=== PATIENT | female | born 1975 | race American Indian/Alaskan Native ===

== ENCOUNTER 2017-05-27 18:40 | Emergency (ER) | payer OTHER ==
[2017-05-27 20:04] LABS: Basophils % (Auto) 0.4 % (0.0-1.8); Eosinophils % (Auto) 1.8 % (0.0-4.3); Hematocrit 36.3 % (30.3-42.9); Hemoglobin 11.7 gm/dl (10.1-14.3); Mean Corpuscular HGB Conc 32 % (30-34); Mean Corpuscular Hemoglobin 29 pg (28-32); Mean Corpuscular Volume 90 fl (79-97); Platelet Count 298 K/mm3 (140-440); Red Blood Count 4.03 M/mm3 (3.65-5.03); Red Cell Distribution Width 13.3 % (13.2-15.2); White Blood Count 9.3 K/mm3 (4.5-11.0)
[2017-05-27 20:27] LABS: Alanine Aminotransferase 15 units/L (7-56); Albumin/Globulin Ratio 1.2 %; Alkaline Phosphatase 75 units/L (35-129); Anion Gap 16 mmol/L; BUN/Creatinine Ratio 14.28; Blood Urea Nitrogen 10 mg/dL (7-17); Calcium 8.6 mg/dL (8.4-10.2); Carbon Dioxide 25 mmol/L (22-30); Chloride 106.6 mmol/L (98-107); Glucose 82 mg/dL (65-100); Lipase 15 units/L (13-60); Potassium 3.8 mmol/L (3.6-5.0); Sodium 144 mmol/L (137-145); Total Protein 7.3 g/dL (6.3-8.2)
[2017-05-28 00:16] LABS: Bacteria,Urine 2+ /HPF (Negative); Bilirubin,Urine NEG (Negative); Blood,Urine NEG (Negative); Ketones,Urine NEG (Negative); Leukocyte Esterase,Urine SM (Negative); Mucus,Urine FEW /HPF; Nitrite,Urine POS (Negative); Protein,Urine <15 mg/dL mg/dL (Negative); Urobilinogen,Urine < 2.0 mg/dL (<2.0)
--- NOTE | 2017-05-28 02:24 | Emergency Department Report ---
ED Abdominal Pain HPI - General Chief Complaint: Abdominal Pain Stated Complaint: RIGHT SIDE PAIN Time Seen by Provider: 05/28/17 02:14 Source: patient Mode of arrival: Ambulatory Limitations: No Limitations - History of Present Illness Initial Comments: Patient stated that she has right flank pain for more than 3 weeks. Also complaining of frequent urination and burning sensation when she gets the bathroom. No fever no chills no nausea no vomiting. MD Complaint: abdominal pain, flank pain Severity scale (0 -10): 7 - Related Data Previous Rx's Medication Instructions Recorded Last Taken Type Ciprofloxacin HCl [Ciprofloxacin 500 mg PO Q12H #14 tab 05/28/17 Unknown Rx TAB] Ketorolac [Toradol] 10 mg PO Q6H PRN #20 tablet 05/28/17 Unknown Rx Allergies Allergy/AdvReac Type Severity Reaction Status Date / Time No Known Allergies Allergy Verified 05/27/17 19:32 ED Review of Systems ROS: Stated complaint: RIGHT SIDE PAIN Other details as noted in HPI Comment: All other systems reviewed and negative Constitutional: denies: chills, fever Respiratory: denies: cough, shortness of breath Cardiovascular: denies: chest pain, palpitations Gastrointestinal: denies: abdominal pain, nausea, vomiting Genitourinary: urgency, dysuria, frequency. denies: hematuria, discharge, abnormal menses, dyspareunia Musculoskeletal: back pain Neurological: denies: headache ED Past Medical Hx - Past Medical History Previous Medical History?: No - Surgical History Past Surgical History?: No - Social History Smoking Status: Current Every Day Smoker Substance Use Type: None - Medications Home Medications: Home Medications Medication Instructions Recorded Confirmed Last Taken Type Ciprofloxacin HCl [Ciprofloxacin 500 mg PO Q12H #14 tab 05/28/17 Unknown Rx TAB] Ketorolac [Toradol] 10 mg PO Q6H PRN #20 tablet 05/28/17 Unknown Rx ED Physical Exam - General Limitations: No Limitations General appearance: alert, in no apparent distress - Head Head exam: Present: normocephalic - Eye Eye exam: Present: normal appearance - ENT ENT exam: Present: normal exam - Neck Neck exam: Present: normal inspection - Respiratory Respiratory exam: Present: normal lung sounds bilaterally - Cardiovascular Cardiovascular Exam: Present: regular rate - GI/Abdominal GI/Abdominal exam: Present: soft. Absent: distended, tenderness, guarding, rebound, rigid, normal bowel sounds - Back Exam Back exam: Present: normal inspection, CVA tenderness (R). Absent: tenderness, CVA tenderness (L), muscle spasm, paraspinal tenderness - Neurological Exam Neurological exam: Present: alert, oriented X3, CN II-XII intact - Skin Skin exam: Present: warm, normal color ED Course Vital Signs 05/27/17 05/27/17 19:33 22:47 Temperature 99.0 F 97.5 F L Pulse Rate 42 L Respiratory 20 18 Rate Blood Pressure 155/72 152/78 O2 Sat by Pulse 100 100 Oximetry ED Medical Decision Making - Lab Data Result diagrams: 05/27/17 19:54 05/27/17 19:54 Critical care attestation.: If time is entered above; I have spent that time in minutes in the direct care of this critically ill patient, excluding procedure time. ED Disposition Clinical Impression: UTI (urinary tract infection) Disposition: DC-01 TO HOME OR SELFCARE Is pt being admited?: No Condition: Stable Instructions: Abdominal Pain (ED), Urinary Tract Infection in Women (ED) Referrals: PRIMARY CARE, [Primary Care Provider] - 3-5 Days
[2017-05-28 02:38] VITALS: BP 113/74
== END 2017-05-28 03:16 | disposition home or self-care (01) ==
LOC: ED 18:40
DX: N39.0 Urinary tract infection, site not specified (principal)
CPT/HCPCS: 36415; 80053; 81001; 83690; 84703; 85025; 93005; 93010; 99283

== ENCOUNTER 2021-06-10 15:11 | Emergency (ER) | payer SELFPAY | END 2021-06-10 16:50 | LOC: ED 15:11 | DX: N18.9 Chronic kidney disease, unspecified (principal); Z53.21 Procedure and treatment not carried out due to patient leaving prior to being seen by health care provider ==

== ENCOUNTER 2022-03-02 14:38 | Emergency (ER) | payer SELFPAY ==
[2022-03-02 16:35] LABS: Bilirubin,Urine NEG (Negative); Blood,Urine NEG (Negative); Color,Urine Yellow (Yellow); Mucus,Urine FEW /HPF; Protein,Urine <15 mg/dL mg/dL (Negative); Urobilinogen,Urine < 2.0 mg/dL (<2.0)
[2022-03-02] MEDS ORDERED: KETOROLAC 10 MG TAB PO ONE (18:03)
--- NOTE | 2022-03-02 20:13 | Ultrasound Report ---
US abdomen limited INDICATION / CLINICAL INFORMATION: ruq pain. COMPARISON: No relevant prior imaging study available. FINDINGS: Examination is limited due to body habitus. PANCREAS: No significant abnormality. ABDOMINAL AORTA: No significant abnormality. IVC: No significant abnormality. LIVER: Liver is enlarged, measuring 18.3 cm. No other significant abnormality. PORTAL VEIN: Normal hepatopedal blood flow in the main portal vein. GALLBLADDER: No significant abnormality. BILE DUCTS: Common bile duct measures 2 mm. No significant abnormality. RIGHT KIDNEY: No significant abnormality visualized. FREE FLUID: None. ADDITIONAL FINDINGS: None. IMPRESSION: 1. No acute abnormality of the right upper quadrant. 2. Mild hepatomegaly, which is nonspecific. Signer Name: Logan Adam MD Signed: 03/02/2022 8:08 PM Workstation Name: [id number]
--- NOTE | 2022-03-02 20:53 | Emergency Department Report ---
ED Abdominal Pain HPI - General Chief Complaint: Abdominal Pain Stated Complaint: LEG AND STOMACH PAIN Time Seen by Provider: 03/02/22 17:52 Source: patient Mode of arrival: Ambulatory Limitations: No Limitations - History of Present Illness Initial Comments: 46-year-old black female with no past medical history presents to the emergency department for evaluation of few week history of intermittent right upper quadrant pain. She states that pain feels like sharp pinching pain that comes out of nowhere and is 9 of 10 at its worse. She states that she also has pain to her right leg and sometimes her leg "goes out" when she is walking around. She denies fever, dysuria, nausea, vomiting, and vaginal discharge. She states that she has not taken any medication for her symptoms. She also denies chest pain, shortness of breath, and hemoptysis. MD Complaint: abdominal pain -: Gradual, week(s) (2-3) Location: RUQ Radiation: none Migration to: no migration Severity: moderate Severity scale (0 -10): 7 Quality: stabbing Consistency: intermittent Associated Symptoms: denies: nausea, diarrhea, fever, chills, dysuria, hematemesis, hematochezia, melena, hematuria, anorexia, syncope - Related Data LMP (females 10-50): this week Previous Rx's Medication Instructions Recorded Last Taken Type Ciprofloxacin HCl [Ciprofloxacin 500 mg PO Q12H #14 tab 05/28/17 Unknown Rx TAB] Ketorolac [Toradol] 10 mg PO Q6H PRN #20 tablet 05/28/17 Unknown Rx Naproxen [Naprosyn] 500 mg PO BID #14 tab 03/02/22 Unknown Rx Allergies Allergy/AdvReac Type Severity Reaction Status Date / Time No Known Allergies Allergy Verified 03/02/22 17:41 ED Review of Systems ROS: Stated complaint: LEG AND STOMACH PAIN Other details as noted in HPI Comment: All other systems reviewed and negative Constitutional: denies: chills, fever, malaise, weakness ENT: denies: congestion Respiratory: denies: orthopnea, shortness of breath, SOB with exertion, SOB at rest, stridor, wheezing Cardiovascular: denies: chest pain, palpitations, dyspnea on exertion, orthopnea, edema, syncope, paroxysmal nocturnal dyspnea Gastrointestinal: abdominal pain. denies: nausea, vomiting, diarrhea, hematemesis, melena, hematochezia Genitourinary: denies: urgency, dysuria, frequency, hematuria, discharge Musculoskeletal: back pain Skin: denies: rash, lesions, change in color, change in hair/nails, pruritus Neurological: denies: headache, weakness, numbness, paresthesias ED Past Medical Hx - Past Medical History Previous Medical History?: No - Social History Smoking Status: Never Smoker Substance Use Type: None - Medications Home Medications: Home Medications Medication Instructions Recorded Confirmed Last Taken Type Ciprofloxacin HCl [Ciprofloxacin 500 mg PO Q12H #14 tab 05/28/17 03/02/22 Unknown Rx TAB] Ketorolac [Toradol] 10 mg PO Q6H PRN #20 tablet 05/28/17 03/02/22 Unknown Rx Naproxen [Naprosyn] 500 mg PO BID #14 tab 03/02/22 Unknown Rx ED Physical Exam - General Limitations: No Limitations General appearance: alert, in no apparent distress - Head Head exam: Present: atraumatic, normocephalic - Eye Eye exam: Present: normal appearance. Absent: conjunctival injection - Neck Neck exam: Present: normal inspection, full ROM. Absent: tenderness, lymphadenopathy - Respiratory Respiratory exam: Present: normal lung sounds bilaterally. Absent: respiratory distress, wheezes, rales, rhonchi, stridor, chest wall tenderness - Cardiovascular Cardiovascular Exam: Present: bradycardia, normal heart sounds - GI/Abdominal GI/Abdominal exam: Present: soft, normal bowel sounds. Absent: distended, ten derness, guarding, rebound, rigid - Extremities Exam Extremities exam: Present: normal inspection, normal capillary refill. Absent: tenderness, pedal edema, joint swelling, calf tenderness - Back Exam Back exam: Present: normal inspection. Absent: CVA tenderness (R), CVA tenderness (L), vertebral tenderness - Neurological Exam Neurological exam: Present: alert, oriented X3, normal gait - Psychiatric Psychiatric exam: Present: normal affect, normal mood - Skin Skin exam: Present: warm, dry, intact, normal color ED Course Vital Signs 03/02/22 03/02/22 15:31 17:37 Temperature 98.1 F 98.6 F Pulse Rate 47 L 76 Respiratory 18 18 Rate Blood Pressure 161/61 130/85 [Right] O2 Sat by Pulse 97 100 Oximetry - Reevaluation(s) Reevaluation #1: 03/02/22 20:49 Pain resolved after medication. ED Medical Decision Making - Radiology Data Radiology results: report reviewed, image reviewed Right upper quadrant ultrasound: FINDINGS: Examination is limited due to body habitus. PANCREAS: No significant abnormality. ABDOMINAL AORTA: No significant abnormality. IVC: No significant abnormality. LIVER: Liver is enlarged, measuring 18.3 cm. No other significant abnormality. PORTAL VEIN: Normal hepatopedal blood flow in the main portal vein. GALLBLADDER: No significant abnormality. BILE DUCTS: Common bile duct measures 2 mm. No significant abnormality. RIGHT KIDNEY: No significant abnormality visualized. FREE FLUID: None. ADDITIONAL FINDINGS: None. IMPRESSION: 1. No acute abnormality of the right upper quadrant. 2. Mild hepatomegaly, which is nonspecific. - Medical Decision Making 46-year-old black female with no past medical history presents to the emergency department for evaluation of few week history of intermittent right upper quadrant pain. She states that pain feels like sharp pinching pain that comes out of nowhere and is 9 of 10 at its worse. She states that she also has pain to her right leg and sometimes her leg "goes out" when she is walking around. She denies fever, dysuria, nausea, vomiting, and vaginal discharge. She states that she has not taken any medication for her symptoms. She also denies chest pain, shortness of breath, and hemoptysis. Urine negative for UTI. Ultrasound without any acute abnormalities noted, but noted to have mild hepatomegaly. Pain resolved after Toradol. Patient will be discharged home with prescription for naproxen and advised to follow-up with primary care provider or GI for further evaluation and management. She is advised to return to the emergency department for any concerning symptoms. She verbalizes understanding of and agreement with plan of care. Critical care attestation.: If time is entered above; I have spent that time in minutes in the direct care of this critically ill patient, excluding procedure time. ED Disposition Clinical Impression: Hepatomegaly Abdominal pain Qualifiers: Abdominal location: right upper quadrant Qualified Code(s): R10.11 - Right upper quadrant pain Disposition: HOME / SELF CARE / HOMELESS Is pt being admited?: No Does the pt Need Aspirin: No Condition: Stable Instructions: Hepatomegaly, [id number], Abdominal Pain, Adult, [id number], Abdominal Pain (ED) Additional Instructions: Follow-up with primary care provider or GI doctor for further evaluation and management. Return to the emergency department as needed. Prescriptions: Naproxen [Naprosyn] 500 mg PO BID #14 tab Referrals: HOLLY RUIZ MD [Primary Care Provider] - 3-5 Days Forms: Work/School Release Form(ED) Time of Disposition: 20:51
[2022-03-02 21:40] VITALS: BP 119/67
== END 2022-03-02 21:22 | disposition home or self-care (01) ==
LOC: ED 14:38
DX: R16.0 Hepatomegaly, not elsewhere classified (principal); R10.11 Right upper quadrant pain
CPT/HCPCS: 76705; 81001; 99284

== ENCOUNTER 2022-06-16 14:48 | Emergency (ER) | payer SELFPAY ==
[2022-06-16 17:06] VITALS: BP 163/56
[2022-06-16 18:08] LABS: Bacteria,Urine 1+ /HPF (Negative); Mucus,Urine FEW /HPF
[2022-06-16 18:28] LABS: Color,Urine Straw (Yellow)
[2022-06-16 18:52] LABS: Blood Urea Nitrogen 9 mg/dL (7-17); Calcium 8.8 mg/dL (8.4-10.2); Hemolysis Index 2
[2022-06-16 18:54] LABS: BUN/Creatinine Ratio 13
[2022-06-16 19:13] LABS: Hematocrit 36.8 % (30.3-42.9); Hemoglobin 11.7 gm/dl (10.1-14.3); Lymphocytes # (Auto) 2.4 K/mm3 (1.2-5.4); Lymphocytes % (Auto) 35.2 % (13.4-35.0); Mean Corpuscular HGB Conc 32 % (30-34); Mean Corpuscular Volume 90 fl (79-97); Monocytes % (Auto) 5.8 % (0.0-7.3); Platelet Count 285 K/mm3 (140-440); Red Blood Count 4.08 M/mm3 (3.65-5.03)
[2022-06-16 19:19] LABS: Basophils % (Auto) 0.6 % (0.0-1.8); Monocytes # (Auto) 5.8 K/mm3 (0.0-0.8); Red Cell Distribution Width 13.6 % (13.2-15.2)
== END 2022-06-16 19:00 | disposition left against medical advice (07) ==
LOC: ED 14:48
DX: R10.9 Unspecified abdominal pain (principal); Z53.21 Procedure and treatment not carried out due to patient leaving prior to being seen by health care provider
CPT/HCPCS: 36415; 80048; 81001; 83690; 85025; 87086